=== PATIENT | male | born 1980 | race Caucasian/White ===

== ENCOUNTER 2024-04-19 08:21 | Emergency (ER) | payer OTHER ==
[~2024-04-19] VITALS: Ht 180.3 cm; Wt 86.2 kg
[2024-04-19] MEDS ORDERED: AMOX-CLAV 875-1 EACH PO (08:38)
[2024-04-19 08:56] LABS: BASO # 0.2 10*3/uL (0.0-0.1); BASO % 1.1 % (0.0-1.0); EOS # 0.3 10*3/uL (0.0-0.4); EOS % 1.9 % (1.0-4.0); HEMATOCRIT 43.5 % (42.0-52.0); LYMPH # 3.7 10*3/uL (1.3-4.4); LYMPH % 25.8 % (27.0-41.0); MEAN CELL VOLUME 92.9 fl (80.0-94.0); MEAN CORPUSCULAR HGB 30.6 pg (27.0-31.0); MEAN CORPUSCULAR HGB CONC 32.9 g/dl (33.0-37.0); MEAN PLATELET VOLUME 8.8 fl (9.6-12.3); MONO # 1.3 10*3/uL (0.1-1.0); MONO % 9.5 % (3.0-9.0); NEUT # 8.7 10*3/uL (2.3-7.9); NEUT % 61.2 % (47.0-73.0); PLATELET COUNT AUTOMATED 354 10*3/uL (130-400); RED BLOOD COUNT 4.68 10*6/uL (4.50-5.90); RED CELL DISTRI WIDTH 13.5 % (0-14.5); WHITE BLOOD COUNT 14.2 10*3/uL (4.8-10.8)
[2024-04-19 09:10] LABS: BUN 9 mg/dl (9-23); CHLORIDE 104 mmol/L (98-107); POTASSIUM 4.3 mmol/L (3.4-5.1)
[2024-04-19] MEDS ORDERED: IOHEXOL 300 MG/ML 100 ML VIAL IV ONE (09:55)
[2024-04-19] MEDS ORDERED: IOHEXOL 300 MG/ML 100 ML VIAL ONE (10:09)
== END 2024-04-19 13:44 | disposition short-term general hospital (02) ==
LOC: ED 08:21
PROVIDERS: Internal Medicine
DX: J36 Peritonsillar abscess (principal); F17.200 Nicotine dependence, unspecified, uncomplicated; Z79.2 Long term (current) use of antibiotics